=== PATIENT | male | born 1955 | race Asian ===

== ENCOUNTER 2016-07-31 09:26 | Day surgery (SDC) | payer BC, OTHER ==
[~2016-07-31 09:26] MED LIST: Lactated Ringers 1,000 ML IV SCH; Midazolam 1 MG/ML 2 ML SDV ONE; Propofol 200 MG/20 ML SDV ONE; fentaNYL 100 MCG/2 ML SDV ONE
--- NOTE | 2016-07-31 09:49 | PCM.PREANE ---
Preanesthetic Assessment - Anesthesia/Transfusion/Family Hx Anesthesia History: Prior Anesthesia Without Reaction Family History of Anesthesia Reaction: No Transfusion History: No Prior Transfusion(s) Intubation History: Unknown - Review of Systems General: No Symptoms Pulmonary: No Symptoms Cardiovascular: No Symptoms Gastrointestinal: Abdominal pain, Vomiting Neurological: No Symptoms Other: Reports: None - Physical Assessment O2 Sat by Pulse Oximetry: 97 Respiratory Rate: 14 Vital Signs: Last Vital Signs Temp 36 C 07/31/16 09:35 Pulse 82 07/31/16 09:35 Resp 14 07/31/16 09:35 BP 142/90 H 07/31/16 09:35 Pulse Ox 97 07/31/16 09:35 Height: 1.68 m Weight: 63.503 kg ASA Class: 2 Mental Status: Alert & Oriented x3 Airway Class: Mallampati = 2 Dentition: Reports: Riner(s) (few, up front) Thyro-Mental Finger Breadths: 2 Mouth Opening Finger Breadths: 3 ROM/Head Extension: Full Lungs: Clear to auscultation, Normal respiratory effort Cardiovascular: Regular Rate, Regular Rhythm - Allergies Allergies/Adverse Reactions: Allergies Allergy/AdvReac Type Severity Reaction Status Date / Time No Known Allergies Allergy Verified 09/25/14 19:59 - Blood Blood Available: No - Anesthesia Plan Pre-Op Medication Ordered: None - Acknowledgements Anesthesia Type Planned: MAC Pt an Appropriate Candidate for the Planned Anesthesia: Yes Alternatives and Risks of Anesthesia Discussed w Pt/Guardian: Yes Pt/Guardian Understands and Agrees with Anesthesia Plan: Yes PreAnesthesia Questionnaire - Past Health History Medical/Surgical History: Denies Medical/Surgical History Gastrointestinal History: Reports: Other (See Below) Other Gastrointestinal History: gastric ulcers "yrs ago", epigastric pain and vomiting - Past Surgical History Head Surgeries/Procedures: Reports: None HEENT Surgical History: Reports: Other (See Below) Other HEENT Surgeries/Procedures: eye surgery x2 - SUBSTANCE USE Smoking Status *Q: Never Smoker Recreational Drug Use History: No - HOME MEDS Home Medications: Home Meds Esomeprazole Magnesium [Nexium] 20 mg PO DAILY 07/26/16 [History] Multivitamin [Multivitamins] 1 tab PO DAILY 07/26/16 [History] - CURRENT (IN HOUSE) MEDS Current Meds: Current Medications Lactated Ringer's (Ringers, Lactated) 1,000 mls @ 125 mls/hr IV ASDIRECTED LUIS Last Admin: 07/31/16 09:38 Dose: 125 mls/hr Discontinued Medications Fentanyl (Sublimaze) Confirm Administered Dose 100 mcg .ROUTE .STK-MED ONE Stop: 07/31/16 07:28 Midazolam HCl (Versed 1 Mg/Ml) Confirm Administered Dose 2 mg .ROUTE .STK-MED ONE Stop: 07/31/16 07:28 Propofol (Diprivan 20 Ml) Confirm Administered Dose 400 mg .ROUTE .STK-MED ONE Stop: 07/31/16 07:28
[2016-07-31] MEDS ORDERED: Propofol 200 MG/20 ML SDV ONE ×2 (11:58→12:07)
[2016-07-31] MEDS ORDERED: fentaNYL 100 MCG/2 ML SDV ONE (12:11)
--- NOTE | 2016-07-31 12:35 | PCM.OPNOTE ---
- General Post-Op/Procedure Note Date of Surgery/Procedure: 07/31/16 Operative Procedure(s): egd w bx and colonoscopy Findings: see dict [id number] Pre Op Diagnosis: abd pain and scrn colonoscopy Post-Op Diagnosis: same Anesthesia Technique: Moderate sedation Primary Surgeon: Harshil Angeles Pathology: egd bx Complications: None Condition: Good
--- NOTE | 2016-07-31 13:14 | PCM.POSTAN ---
POST ANESTHESIA ASSESSMENT - MENTAL STATUS Mental Status: alert, oriented - RESPIRATORY Respiratory Status: respiratory rate WNL, airway patent, O2 saturation stable - CARDIOVASCULAR CV Status: pulse rate WNL, blood pressure stable - GASTROINTESTINAL GI Status: no symptoms - POST OP HYDRATION Hydration Status: adequate & stable - OBSERVATIONS Free Text/Narrative:: no anesthesia problems
[2016-07-31] MEDS ORDERED: Ondansetron 4 MG Tab.DIS PO ONE (13:37)
[2016-07-31 14:20] VITALS: BP 142/86
--- NOTE | 2016-08-01 06:03 | OR ---
SURGEON: Harshil Angeles MD DATE OF PROCEDURE: 07/31/2016 PREOPERATIVE DIAGNOSES: Screening colonoscopy and peptic ulcer disease. PROCEDURE PERFORMED: Esophagogastroduodenoscopy with biopsy and colonoscopy. COMPLICATION: None. DETAILS OF PROCEDURE: EGD: The patient was taken to the endoscopy room, and with the DELPHI PROGRAMMER, Diprivan was administered. A well-lubricated EGD scope was gently inserted through the oropharynx, down the esophagus, passing through the gastroesophageal junction, into the stomach. The mucosa was examined upon the passage. Any etiology will be noted. Once in the stomach, we continued to advance to the distal antrum, passed through the pylorus into the second portion of the duodenum. Again, the mucosa was examined for any abnormality and etiology. The scope was then retrieved back to the stomach and then retroflexed to look at the fundus of the stomach. If a biopsy was indicated, we will biopsy the antrum, body, and gastroesophageal junction. The air will be sucked out while the scope is retrieved to reduce the patient's discomfort. The patient tolerated the procedure well. There were no intraoperative complications. Dr. Angeles was present through the whole procedure. Prior to surgery, a time-out had been called, the patient identified, procedure identified and antibiotic administered. COLONOSCOPY: The patient was taken to the endoscopy room. A time out was called, patient identified, and procedure identified. Diprivan was then administrated. Patient went from awake to sleep, hearing doctor talking or door closing is normal. Perineum inspection and digital examination were then performed. A well-lubricated colonoscope was gently inserted through the rectum, advanced past the rectosigmoid junction, the descending colon, splenic flexure, transverse colon, hepatic flexure, ascending colon, arrived to the cecum. Cecum was identified as dictated in the finding. Then the scope was carefully withdrawn while attention was paid to the mucosal surface for any abnormality. Air will be sucked out during the scope withdrawal. At the rectum, retroflexed to examine any rectal diseases, fistula or hemorrhoids. Patient tolerated procedure well. There were no intraoperative complications, and Dr. Angeles was present throughout the whole procedure. FINDINGS: Esophagogastroduodenoscopy finding. 1. The patient is easily sedated with DELPHI PROGRAMMER and Diprivan. The patient is soundly snoring. 2. The patient's oropharynx and proximal esophagus are free of disease. In the mid esophagus, the patient has a large amount of white dot, possible esophagitis with yeasts infection. Biopsy done and distal esophagus at 40 with mild salmon color change consistent with acid reflux, and stomach rugae is normal in appearance. No bile, no blood, no ulcer, or no food particle. Antrum was a little bit inflamed and duodenum was grossly normal in appearance. The scope was retrieved back to the stomach. Retroflexed look at the fundus and stomach and there is no hiatal hernia. Biopsy done at antrum, body, GE junction at 40, and also one white dot at the mid esophagus. So 4 biopsy specimens. Sucked out air while scope pulling out. Colonoscopy finding: The patient is easily sedated with DELPHI PROGRAMMER and Diprivan. The patient is soundly snoring and colon is rather redundant at the sigmoid area and requiring several maneuvers. Turning the patient on to side way and flat and pushing on the abdomen was able to get to the cecum. Cecum indicated by ileocecal fold, one-to- one indentation, and light emittance and appendix orifice and the terminal ilium is bulging, pretty large or is possibly a mass. We would like to do a biopsy to confirm the terminal ilium or mass, but however due to peristalsis, the scope was pushed out and despite more than 10 minutes attempt, the scope was not able to get back to the cecum because of the air. At that time, it was inflate, but we will follow up with either terminal ilium or mass in three month on repeat colonoscopy. Otherwise, the patient does not have any diverticulosis other polyp growth or inflammation, stricture, ulceration, bleeding or AV malformation. The patient has mild external hemorrhoid and the patient will need to repeat colonoscopy in three months to establish or to reassess the terminal ilium, or possible mass because of the technical problem of revisit the cecum with a large amount of air. As always, thank you for the kind referral. ELVIN / TOSHIA /[id number]
== END 2016-07-31 13:52 | disposition home or self-care (01) ==
LOC: MW.SDS 09:26
PROVIDERS: ATTEND Surgery
DX: Z12.11 Encounter for screening for malignant neoplasm of colon (principal); Z87.11 Personal history of peptic ulcer disease; K29.50 Unspecified chronic gastritis without bleeding; B96.81 Helicobacter pylori [H. pylori] as the cause of diseases classified elsewhere; K64.4 Residual hemorrhoidal skin tags
CPT/HCPCS: 43239; 45378; A9270; J2250; J3010; J7120; 00740; 88305; 88312; 88313; J2704

== ENCOUNTER 2018-08-08 06:49 | Day surgery (SDC) | payer BC ==
[2018-08-08] MEDS ORDERED: ceFAZolin 2 GM in Premix Bag 1 BAG IV ONE (07:31)
[2018-08-08] MEDS ORDERED: Lactated Ringers 1,000 ML IV SCH (07:45)
[2018-08-08] MEDS ORDERED: Propofol 200 MG/20 ML SDV ONE (08:02)
[2018-08-08] MEDS ORDERED: Lidocaine 2% 100 MG/5 ML Syringe ONE (08:03)
[2018-08-08] MEDS ORDERED: Rocuronium 100 MG/10 ML Syringe ONE (08:03)
[2018-08-08] MEDS ORDERED: fentaNYL 250 MCG/5 ML SDV ONE (08:03)
--- NOTE | 2018-08-08 08:03 | PCM.PREANE ---
Preanesthetic Assessment - Anesthesia/Transfusion/Family Hx Anesthesia History: Prior Anesthesia Without Reaction Family History of Anesthesia Reaction: No Transfusion History: No Prior Transfusion(s) Intubation History: Unknown - Review of Systems General: No Symptoms Pulmonary: No Symptoms Cardiovascular: No Symptoms Gastrointestinal: No Symptoms Neurological: No Symptoms Other: Reports: None - Physical Assessment Height: 5 ft 6 in Weight: 65.771 kg ASA Class: 1 Mental Status: Alert & Oriented x3 Airway Class: Mallampati = 2 Dentition: Reports: Normal Dentition Thyro-Mental Finger Breadths: 3 Mouth Opening Finger Breadths: 3 ROM/Head Extension: Full Lungs: Clear to Auscultation, Normal Respiratory Effort Cardiovascular: Regular Rate, Regular Rhythm - Allergies Allergies/Adverse Reactions: Allergies Allergy/AdvReac Type Severity Reaction Status Date / Time No Known Allergies Allergy Verified 08/06/18 10:43 - Blood Blood Available: No - Anesthesia Plan Pre-Op Medication Ordered: None - Acknowledgements Anesthesia Type Planned: General Anesthesia Pt an Appropriate Candidate for the Planned Anesthesia: Yes Alternatives and Risks of Anesthesia Discussed w Pt/Guardian: Yes Pt/Guardian Understands and Agrees with Anesthesia Plan: Yes PreAnesthesia Questionnaire - Past Health History Medical/Surgical History: Denies Medical/Surgical History HEENT History: Reports: Other (See Below) Other HEENT History: wears glasses Gastrointestinal History: Reports: Colon Polyp, GERD, Hiatal Hernia Other Gastrointestinal History: gastric ulcers "yrs ago", epigastric pain and vomiting Musculoskeletal History: Reports: Arthritis (rt. knee) - Past Surgical History GI Surgical History: Reports: Colonoscopy, EGD - SUBSTANCE USE Smoking Status *Q: Never Smoker Recreational Drug Use History: No - HOME MEDS Home Medications: Home Meds Multivitamin [Multivitamins] 1 tab PO DAILY 07/26/16 [History] Diclofenac Sodium [Voltaren] 50 mg PO BIDMEALS PRN 08/06/18 [History] - CURRENT (IN HOUSE) MEDS Current Meds: Current Medications Lactated Ringer's (Ringers, Lactated) 1,000 mls @ 125 mls/hr IV ASDIRECTED LUIS Discontinued Medications Cefazolin Sodium/Dextrose 2 gm (/ Premix) 50 mls @ 100 mls/hr IV ONETIME ONE Stop: 08/08/18 08:00
[2018-08-08] MEDS ORDERED: Midazolam 1 MG/ML 2 ML SDV ONE (08:17)
[2018-08-08] MEDS ORDERED: ceFAZolin/Dextrose,Iso-Osmotic 2 GM/50 ML Duplex Bag IV ONE (08:20)
[2018-08-08] MEDS ORDERED: Phenylephrine/Normal Saline 100 MCG/ML 10 ML Syringe ONE (08:47)
[2018-08-08] MEDS ORDERED: Dexamethasone 4 MG/ML 5 ML MDV ONE (09:01)
[2018-08-08] MEDS ORDERED: Ketorolac 30 MG/ML SDV ONE (09:01)
[2018-08-08] MEDS ORDERED: Glycopyrrolate 0.2 MG/ML SDV ONE (09:01)
[2018-08-08] MEDS ORDERED: Neostigmine Methylsulfate 1 MG/ML 5 ML Syringe ONE (09:01)
[2018-08-08] MEDS ORDERED: Ondansetron 4 MG/2 ML SDV ONE (09:01)
[2018-08-08] MEDS ORDERED: Lidocaine 2% 5 ML SDV ONE (09:27)
[2018-08-08] MEDS ORDERED: Octyl 2-Cyanoacrylate 1 Tube ONE (09:43)
[2018-08-08] MEDS ORDERED: fentaNYL 100 MCG/2 ML SDV IVPUSH PRN (10:02)
--- NOTE | 2018-08-08 11:07 | PCM.OPNOTE ---
- General Post-Op/Procedure Note Date of Surgery/Procedure: 08/08/18 Operative Procedure(s): ing hernia repair w mesh, L Findings: see dict [id number] Pre Op Diagnosis: ing hernia on L Post-Op Diagnosis: Same Anesthesia Technique: General ET Tube Primary Surgeon: Harshil Angeles Complications: None Condition: Good Free Text/Narrative:: Intake & Output 08/07/18 08/08/18 08/08/18 22:59 06:59 14:59 Intake Total 1100 Output Total 200 Balance 900
[2018-08-08] MEDS: Acetaminophen/oxyCODONE 325-5 MG Tab PO PRN ×2 (12:48→12:54)
--- NOTE | 2018-08-08 13:35 | PCM48HPAN ---
Post Anesthesia Note - EVALUATION WITHIN 48HRS OF ANESTHETIC Vital Signs in Normal Range: Yes Patient Participated in Evaluation: Yes Respiratory Function Stable: Yes Airway Patent: Yes Cardiovascular Function Stable: Yes Hydration Status Stable: Yes Pain Control Satisfactory: Yes Nausea and Vomiting Control Satisfactory: Yes Mental Status Recovered: Yes Resp Rate: 16 - COMMENTS/OBSERVATIONS Free Text/Narrative:: The patient had dry heaves while he was changing his clothes. This was witnessed by me. The patient immediately sat down, and the heaves resolved over 10 minutes. Prior to discharge, I expressed my concerns regarding N/V with the patient, and the patient stated that the nauseous feeling has resolved , and would like to go home. The patient was discharged to home per criteria.
[2018-08-08 14:26] VITALS: BP 141/77
--- NOTE | 2018-08-08 15:58 | OR ---
SURGEON: Harshil Angeles MD DATE OF PROCEDURE: 08/08/2018 PREOPERATIVE DIAGNOSIS: Left inguinal hernia. POSTOPERATIVE DIAGNOSIS: Left inguinal hernia. PROCEDURE PERFORMED: Inguinal hernia repair with mesh on the left. PRIMARY SURGEON: Harshil Angeles MD. COMPLICATIONS: None. FINDINGS: It looks like the patient has 2 hernias on the left and one is a direct hernia, one is indirect hernia, and repaired with a custom-made medium-size mesh.. PROCEDURE IN DETAIL: The patient was taken to the operating room and placed in the supine position. Upon induction of general endotracheal anesthesia, the patient's groin and inguinal area were prepped and draped in a sterile fashion. The scrotum was placed on top of the drape in case it needed to be maneuvered. An IV antibiotic was given prophylactically and after assessment of appropriate landmark, a transverse skin incision was made two fingers above the inguinal crease. This was then carefully taken down past the Christo fascia and exposed the external oblique where the cord is. A small cesar was made right on top of the cord and then using a Metzenbaum scissors, carefully opened up the fiber along its direction all the way to the external ring. The spermatic cord was then carefully lifted up from the inguinal canal. A Wingate drain was then used to hold on to manipulate the cord and carefully dissect out from the inguinal floor. The cremasteric muscle was then opened up. Careful examined of the cord, dissected down the cremasteric muscle, a large glistening whitish hernia sac in the medial anterior aspect of the floor, next to the cord, was located. The vas was identified and pushed aside to avoid damage. This was carefully dissected down all the way to the internal ring. The hernia sac was open up to examine if there was any hernia content; using a 2-0 silk, a purse string was placed to close the sac and the redundant part of the sac was amputated. A small plug was inserted into the hernia stump and followed with a mesh to reinforce the inguinal floor. The mesh was then anchored down by using 2-0 Prolene stitches to the periosteum of the pubic symphysis, then running down to the lateral aspect of the rectus muscle. The lateral part of the mesh was then anchored to the Ayush ligament, again using 2-0 Prolene. The last few stitches also anchored the plug to make sure the plug is not migrating. Where the cord exits out, a stitch was placed in the two tails to repair the internal ring. Upon conclusion of surgery, I used a finger to make sure the ring is not too tight and not too loose, followed with some irrigation. The external oblique was then repaired by use of 2-0 Vicryl and the recreation external ring was also tested, not too tight, not too loose, followed with 2-0 Vicryl and closed the Christo fascia and the skin stapled to approximate the skin, followed by appropriate dressing. The patient was then awakened, extubated and transferred to recovery room in a hemodynamically stable condition. The patient tolerated the procedure well. There were no intraoperative complications. Dr. Angeles was present through the whole procedure. Just before surgery, a timeout was called. The patient was identified and procedure identified and procedure started. Findings as dictated above. As always, thank you for the kind referral. ELVIN POPE /[id number] [id number]
== END 2018-08-08 13:30 | disposition home or self-care (01) ==
LOC: MW.SDS 06:49
PROVIDERS: ATTEND Surgery
DX: K40.90 Unilateral inguinal hernia, without obstruction or gangrene, not specified as recurrent (principal); M13.861 Other specified arthritis, right knee; Z87.19 Personal history of other diseases of the digestive system
CPT/HCPCS: 49505; A9270; C1781; J0131; J0690; J1100; J1885; J2001; J2250; J2370; J2405; J2704; J3010; J3490; J7120

== ENCOUNTER 2018-08-12 16:01 | Emergency (ER) | payer BC ==
--- NOTE | 2018-08-12 16:50 | EDM.PDOC ---
ED HPI GENERAL MEDICAL PROBLEM - General Chief Complaint: Gastrointestinal Problem Stated Complaint: POST SURGERY PAIN Time Seen by Provider: 08/12/18 16:49 Source of Information: Reports: Patient - History of Present Illness INITIAL COMMENTS - FREE TEXT/NARRATIVE: HISTORY AND PHYSICAL: History of present illness: [Patient presents postop day for stating he has not had a bowel movement since the day after surgery for hernia repair with Dr. Velez, somewhat uncomfortable on arrival however lab flat and upright were obtained there is no bowel obstruction and I did provide some fluids and Reglan for the patient and he had a large bowel movement and did urinate but did not save the sample Hence he is feeling much better all give him some oral Reglan to take at home and have him follow-up with Dr. Velez as scheduled and can certainly return if symptoms persist or worsen No fever nausea vomiting chills sweats ] Review of systems: As per history of present illness and below otherwise all systems reviewed and negative. Past medical history: As per history of present illness and as reviewed below otherwise noncontributory. Surgical history: As per history of present illness and as reviewed below otherwise noncontributory. Social history: No reported history of drug or alcohol abuse. Family history: As per history of present illness and as reviewed below otherwise noncontributory. Physical exam: HEENT: Atraumatic, normocephalic, pupils reactive, negative for conjunctival pallor or scleral icterus, mucous membranes moist, throat clear, neck supple, nontender, trachea midline. Lungs: Clear to auscultation, breath sounds equal bilaterally, chest nontender. Heart: S1S2, regular, negative for clicks, rubs, or JVD. Abdomen: Soft, nondistended, nontender. Negative for masses or hepatosplenomegaly. Negative for costovertebral tenderness. Pelvis: Stable nontender. Genitourinary: Deferred. Rectal: Deferred. Extremities: Atraumatic, negative for cords or calf pain. Neurovascular unremarkable. Neuro: Awake, alert, oriented. Cranial nerves II through XII unremarkable. Cerebellum unremarkable. Motor and sensory unremarkable throughout. Exam nonfocal. Diagnostics: [CBC CMP UA Chest 1 view Abdomen flat and upright ] Therapeutics: NormalSaline Reglan Reglan Bowel care discussed Return if symptoms persist or worsen ] Impression Postoperative constipation resolved Urine retention resolved definitive disposition and diagnosis as appropriate pending reevaluation and review of above. L groin/low abdomen Pain Score (Numeric/FACES): 5 - Related Data Allergies Allergy/AdvReac Type Severity Reaction Status Date / Time No Known Allergies Allergy Verified 08/12/18 16:29 Home Meds: Home Meds Diclofenac Sodium [Voltaren] 50 mg PO BIDMEALS PRN 08/06/18 [History] Past Medical History - Past Health History Medical/Surgical History: Denies Medical/Surgical History HEENT History: Reports: Other (See Below) Other HEENT History: wears glasses Gastrointestinal History: Reports: Colon Polyp, GERD, Hiatal Hernia Other Gastrointestinal History: gastric ulcers "yrs ago", epigastric pain and vomiting Musculoskeletal History: Reports: Arthritis - Past Surgical History Head Surgeries/Procedures: Reports: None HEENT Surgical History: Reports: Other (See Below) Other HEENT Surgeries/Procedures: eye surgery x2 GI Surgical History: Reports: Colonoscopy, EGD Social & Family History - Tobacco Use Smoking Status *Q: Never Smoker Second Hand Smoke Exposure: No - Caffeine Use Caffeine Use: Reports: Coffee, Tea - Recreational Drug Use Recreational Drug Use: No ED ROS GENERAL - Review of Systems Review Of Systems: See Below ED EXAM, GENERAL - Physical Exam Exam: See Below Course - Vital Signs Last Recorded V/S: Last Vital Signs Temp 96.3 F 08/12/18 16:26 Pulse 98 08/12/18 16:26 Resp 16 08/12/18 16:26 BP 163/88 H 08/12/18 16:26 Pulse Ox 96 08/12/18 16:26 - Orders/Labs/Meds Orders: Active Orders 24 hr Category Date Time Status Abdomen Series w Chest 1V [CR] Stat Exams 08/12/18 16:48 Taken UA RFX BRITTANEY AND CULT IF INDIC [URIN] Stat Lab 08/12/18 16:48 Ordered Sodium Chloride 0.9% [Normal Saline] 1,000 ml Med 08/12/18 17:00 Active IV STAT Medication Orders Sodium Chloride (Normal Saline) 1,000 mls @ 125 mls/hr IV STAT LUIS Last Admin: 08/12/18 17:04 Dose: 125 mls/hr Labs: Laboratory Tests 08/12/18 08/12/18 Range/Units 17:01 17:01 WBC 13.23 H (4.0-11.0) K/uL RBC 5.24 (4.50-5.90) M/uL Hgb 16.1 (13.0-17.0) g/dL Hct 47.4 (38.0-50.0) % MCV 90.5 (80.0-98.0) fL MCH 30.7 (27.0-32.0) pg MCHC 34.0 (31.0-37.0) g/dL RDW Std Deviation 42.4 (28.0-62.0) fl RDW Coeff of Claudio 13 (11.0-15.0) % Plt Count 324 (150-400) K/uL MPV 10.10 (7.40-12.00) fL Neut % (Auto) 80.4 H (48.0-80.0) % Lymph % (Auto) 10.1 L (16.0-40.0) % [place] % (Auto) 8.8 (0.0-15.0) % Eos % (Auto) 0.5 (0.0-7.0) % Baso % (Auto) 0.2 (0.0-1.5) % Neut # (Auto) 10.6 H (1.4-5.7) K/uL Lymph # (Auto) 1.3 (0.6-2.4) K/uL [place] # (Auto) 1.2 H (0.0-0.8) K/uL Eos # (Auto) 0.1 (0.0-0.7) K/uL Baso # (Auto) 0.0 (0.0-0.1) K/uL Nucleated RBC % 0.0 /100WBC Nucleated RBCs # 0 K/uL Sodium 133 L (136-148) mmol/L Potassium 4.1 (3.5-5.1) mmol/L Chloride 96 L (98-107) mmol/L Carbon Dioxide 26.3 (21.0-32.0) mmol/L BUN 20 H (7.0-18.0) mg/dL Creatinine 0.7 L (0.8-1.3) mg/dL Est Cr Clr Drug Dosing 98.74 mL/min Estimated GFR (MDRD) > 60.0 ml/min Glucose 177 H (74-106) mg/dL Calcium 10.2 H (8.5-10.1) mg/dL Total Bilirubin 0.5 (0.2-1.0) mg/dL AST 25 (15-37) IU/L ALT 45 (14-63) IU/L Alkaline Phosphatase 66 (46-116) U/L Troponin I < 0.050 (0.000-0.056) ng/mL Total Protein 8.6 H (6.4-8.2) g/dL Albumin 3.9 (3.4-5.0) g/dL Globulin 4.7 H (2.6-4.0) g/dL Albumin/Globulin Ratio 0.8 L (0.9-1.6) Meds: Medications Generic Name Dose Route Start Last Admin Trade Name Freq PRN Reason Stop Dose Admin Sodium Chloride 1,000 mls @ 125 mls/hr 08/12/18 17:00 08/12/18 17:04 Normal Saline IV 125 mls/hr STAT LUIS Administration Discontinued Medications Generic Name Dose Route Start Last Admin Trade Name Freq PRN Reason Stop Dose Admin Metoclopramide HCl 10 mg 08/12/18 17:35 08/12/18 17:49 Reglan IV 08/12/18 17:36 10 mg ONETIME ONE Administration Departure - Departure Time of Disposition: 18:19 Disposition: Home, Self-Care 01 Condition: Good Clinical Impression: Encounter for medical screening examination - Discharge Information Referrals: PCP,None [Primary Care Provider] - Forms: ED Department Discharge Additional Instructions: Medication as prescribed Return if symptoms persist or worsen Follow-up with general surgery as scheduled The following information is given to patients seen in the emergency department who are being discharged to home. This information is to outline your options for follow-up care. We provide all patients seen in our emergency department with a follow-up referral. The need for follow-up, as well as the timing and circumstances, are variable depending upon the specifics of your emergency department visit. If you don't have a primary care physician on staff, we will provide you with a referral. We always advise you to contact your personal physician following an emergency department visit to inform them of the circumstance of the visit and for follow-up with them and/or the need for any referrals to a consulting specialist. The emergency department will also refer you to a specialist when appropriate. This referral assures that you have the opportunity for follow-up care with a specialist. All of these measure are taken in an effort to provide you with optimal care, which includes your follow-up. Under all circumstances we always encourage you to contact your private physician who remains a resource for coordinating your care. When calling for follow-up care, please make the office aware that this follow-up is from your recent emergency room visit. If for any reason you are refused follow-up, please contact the [facility] emergency department at and asked to speak to the emergency department charge nurse. - My Orders Last 24 Hours: My Active Orders 08/12/18 16:48 Abdomen Series w Chest 1V [CR] Stat UA RFX BRITTANEY AND CULT IF INDIC [URIN] Stat 08/12/18 17:00 Sodium Chloride 0.9% [Normal Saline] 1,000 ml IV STAT - Assessment/Plan Last 24 Hours: My Active Orders 08/12/18 16:48 Abdomen Series w Chest 1V [CR] Stat UA RFX BRITTANEY AND CULT IF INDIC [URIN] Stat 08/12/18 17:00 Sodium Chloride 0.9% [Normal Saline] 1,000 ml IV STAT
[2018-08-12] MEDS ORDERED: Sodium Chloride 0.9% 1,000 ML IV SCH (17:00)
[2018-08-12] MEDS ORDERED: Metoclopramide 10 MG/2 ML SDV IV ONE (17:35)
[2018-08-12 17:40] LABS: CHLORIDE,CL 96 mmol/L (98-107); SODIUM,NA 133 mmol/L (136-148)
--- NOTE | 2018-08-12 18:24 | CR ---
Indication: Postsurgical pain Technique: Chest and abdomen 3 view. Comparison: None. Findings: Chest: Heart size and pulmonary vasculature are normal. Lungs and pleural spaces are clear. Bowel: Bowel pattern is normal. Soft tissues: No sign of free air. No sign of soft tissue mass. No suspicious calcifications. Bones: Unremarkable for age. Impression: Unremarkable chest and abdomen. Dictated by Ryan Douglas MD @ Aug 12 2018 6:21PM Signed by Dr. Ryan Douglas @ Aug 12 2018 6:22PM
[2018-08-12 18:30] VITALS: BP 127/76
== END 2018-08-12 18:30 | disposition home or self-care (01) ==
LOC: MW.ED 16:01
DX: Z13.9 Encounter for screening, unspecified (principal)
CPT/HCPCS: 74022; 80053; 84484; 85025; 96361; 96374; 99283; J2765; J7040

== ENCOUNTER 2021-07-07 15:43 | Observation (INO) | payer MEDICARE, OTHER, BC ==
[2021-07-07] MEDS ORDERED: Sodium Chloride 0.9% 10 ML Syringe FLUSH PRN (15:52)
[2021-07-07] MEDS ORDERED: Sodium Chloride 0.9% 1,000 ML IV ONE (15:52)
[2021-07-07] MEDS ORDERED: Sodium Chloride 0.9% 2.5 ML Syringe FLUSH PRN (15:52)
[2021-07-07 16:28] LABS: BLOOD UREA NITROGEN,BUN 31 mg/dL (7.0-18.0); CARBON DIOXIDE,CO2 21.3 mmol/L (21.0-32.0); CHLORIDE,CL 103 mmol/L (98-107); GLUCOSE RANDOM 242 mg/dL (74-106); POTASSIUM,K 3.5 mmol/L (3.5-5.1); SODIUM,NA 137 mmol/L (136-148)
[2021-07-07] MEDS ORDERED: Aspirin 81 MG Tab.Chew PO ONE (16:40)
[2021-07-07] MEDS ORDERED: Nitroglycerin 2% Oint 1 GM UD Packet TOP ONE (16:41)
[2021-07-07] MEDS ORDERED: 50% Dextrose in Water 50 ML Syringe IVPUSH PRN (22:50)
[2021-07-07] MEDS ORDERED: Glucagon,Human Recombinant 1 MG Vial IM PRN (22:50)
[2021-07-07] MEDS ORDERED: Lisinopril 10 MG Tab PO SCH (23:00)
[2021-07-08 04:16] LABS: BLOOD UREA NITROGEN,BUN 25 mg/dL (7.0-18.0); CARBON DIOXIDE,CO2 26.5 mmol/L (21.0-32.0); CHLORIDE,CL 107 mmol/L (98-107); GLUCOSE RANDOM 189 mg/dL (74-106); SODIUM,NA 142 mmol/L (136-148)
[2021-07-08] MEDS: Insulin Aspart 100 Units/ML 3 ML Pen SUBCUT SCH ×2 (07:30→12:06)
[2021-07-08 13:28] VITALS: BP 143/77; PULSE 80
== END 2021-07-08 12:45 | disposition home or self-care (01) ==
LOC: MW.ED 15:43 → MW.MS 17:12
PROVIDERS: ADMIT Internal Medicine; ATTEND Internal Medicine
DX: R07.89 Other chest pain (principal); E11.9 Type 2 diabetes mellitus without complications; I10 Essential (primary) hypertension; Z79.84 Long term (current) use of oral hypoglycemic drugs; Z79.899 Other long term (current) drug therapy; Z20.822 Contact with and (suspected) exposure to COVID-19
CPT/HCPCS: 36415; 71045; 80048; 80053; 82947; 84484; 85025; 85027; 93005; 99285; A9270; J1815; J3490; J7030; U0002; 93010; G0378

== ENCOUNTER 2022-06-13 08:19 | Observation (INO) | payer MEDICARE, OTHER ==
[~2022-06-13 08:19] MED LIST changes: +Albuterol 0.083% 2.5 MG/3 ML Neb Soln NEB PRN; +Famotidine 20 MG/2 ML SDV IVPUSH SCH; +HYDROmorphone 1 MG/ML Syringe IVPUSH PRN; +Metoclopramide 10 MG/2 ML SDV IVPUSH PRN; -Midazolam 1 MG/ML 2 ML SDV ONE; +Morphine 2 MG/ML SYRINGE IVPUSH PRN; +Naloxone 0.4 MG/ML SDV IVPUSH PRN; +Ondansetron 4 MG/2 ML SDV IVPUSH PRN; -Propofol 200 MG/20 ML SDV ONE; +Ropivacaine 49.25 ML, Ketorolac 30 MG, EPINEPHrine 0.5 MG, cloNIDine 80 MCG in Sodium C... INJECT SCH; +Scopolamine 1.5 MG Transdermal Patch TRDERM SCH; +Tranexamic Acid 1,000 MG in Sodium Chloride 0.9% 100 ML IV ONE; +ceFAZolin 2 GM in Premix Bag 1 BAG IV SCH; +ePHEDrine 50 MG/ML SDV IVPUSH PRN; -fentaNYL 100 MCG/2 ML SDV ONE; +fentaNYL 50 MCG/ML SDV IVPUSH PRN
[2022-06-13] MEDS ORDERED: Famotidine 20 MG/2 ML SDV ONE (08:41)
[2022-06-13] MEDS ORDERED: Lidocaine 2% 5 ML SDV ONE ×2 (09:31→10:57)
[2022-06-13] MEDS ORDERED: Bupivacaine 0.5% 30 ML SDV ONE (09:31)
[2022-06-13] MEDS ORDERED: Water For Injection, Sterile 20 ML ONE (09:34)
[2022-06-13] MEDS ORDERED: Dexmedetomidine 200 MCG/2 ML SDV ONE (09:34)
[2022-06-13] MEDS ORDERED: fentaNYL 100 MCG/2 ML SDV ONE (10:21)
[2022-06-13] MEDS ORDERED: Ondansetron 4 MG/2 ML SDV ONE (10:21)
[2022-06-13] MEDS ORDERED: Propofol 200 MG/20 ML SDV ONE ×2 (10:23)
[2022-06-13] MEDS ORDERED: Phenylephrine 1% 10 MG/ML SDV ONE (10:57)
[2022-06-13] MEDS ORDERED: Sodium Chloride 0.9% 2.5 ML Syringe FLUSH PRN (12:43)
[2022-06-13] MEDS ORDERED: Bisacodyl 10 MG Supp RECTAL PRN (12:43)
[2022-06-13] MEDS ORDERED: Morphine 2 MG/ML SYRINGE IVPUSH PRN (12:43)
[2022-06-13] MEDS ORDERED: traMADol 50 MG Tab PO PRN (12:43)
[2022-06-13] MEDS ORDERED: Aluminum Hydroxide/Magnesium Hydroxide/Simethicone XS Susp 30 ML Cup PO PRN (12:43)
[2022-06-13] MEDS ORDERED: Ondansetron 4 MG/2 ML SDV IVPUSH PRN (12:43)
[2022-06-13] MEDS ORDERED: oxyCODONE 5 MG Tab PO PRN (12:43)
[2022-06-13] MEDS ORDERED: diphenhydrAMINE 25 MG Cap PO PRN (12:43)
[2022-06-13] MEDS ORDERED: Sodium Chloride 0.9% 10 ML Syringe FLUSH PRN (12:43)
[2022-06-13] MEDS: Ketorolac 30 MG/ML SDV IVPUSH SCH ×3 (13:58→23:51)
[2022-06-13] MEDS: Acetaminophen 325 MG Tab PO SCH ×3 (14:02→21:25)
[2022-06-13] MEDS: ceFAZolin 2 GM in Sodium Chloride 0.9% 50 ML IV SCH (18:29)
[2022-06-13] MEDS: Aspirin 325 MG Tab PO SCH (18:30)
[2022-06-13] MEDS: Docusate Sodium 100 MG Cap PO SCH (21:25)
[2022-06-14] MEDS: Acetaminophen 325 MG Tab PO SCH ×3 (01:08→09:49)
[2022-06-14] MEDS: ceFAZolin 2 GM in Sodium Chloride 0.9% 50 ML IV SCH (02:59)
[2022-06-14] MEDS ORDERED: Polyethylene Glycol 3350 Powder 17 GM Packet PO SCH (09:00)
[2022-06-14] MEDS: Aspirin 325 MG Tab PO SCH (09:48)
[2022-06-14] MEDS: Docusate Sodium 100 MG Cap PO SCH (09:48)
[2022-06-14] MEDS ORDERED: Ibuprofen 600 MG Tab PO PRN (11:00)
[2022-06-14 13:16] VITALS: BP 101/56; PULSE 65
== END 2022-06-14 12:00 | disposition home or self-care (01) ==
LOC: MW.SDS 08:19 → MW.MS 13:25
PROVIDERS: ADMIT Orthopaedic Surgery; ATTEND Orthopaedic Surgery
DX: M17.11 Unilateral primary osteoarthritis, right knee (principal); E11.9 Type 2 diabetes mellitus without complications; I10 Essential (primary) hypertension; E78.5 Hyperlipidemia, unspecified; K21.9 Gastro-esophageal reflux disease without esophagitis; Z79.899 Other long term (current) drug therapy; Z98.890 Other specified postprocedural states
CPT/HCPCS: 36415; 73560-26-RT; 73560-RT; 82947; 85014; 85018; 86850; 86900; 86901; 97110-GP; 97161-GP; 97530-GP; A9270-GY; C1713; C1776; J0171; J0690; J0735; J1885; J2370; J2405; J2704; J2795; J3010; J3490; J7120

== ENCOUNTER 2022-10-10 06:17 | Observation (INO) | payer MEDICARE, OTHER ==
[~2022-10-10 06:17] MED LIST changes: -Ropivacaine 49.25 ML, Ketorolac 30 MG, EPINEPHrine 0.5 MG, cloNIDine 80 MCG in Sodium C... INJECT SCH; -Scopolamine 1.5 MG Transdermal Patch TRDERM SCH; -Tranexamic Acid 1,000 MG in Sodium Chloride 0.9% 100 ML IV ONE; -ceFAZolin 2 GM in Premix Bag 1 BAG IV SCH; +droPERidol 5 MG/2 ML SDV IVPUSH PRN; -ePHEDrine 50 MG/ML SDV IVPUSH PRN
[2022-10-10] MEDS ORDERED: Ropivacaine 49.25 ML, Ketorolac 30 MG, EPINEPHrine 0.5 MG, cloNIDine 80 MCG in Sodium C... INJECT SCH (07:00)
[2022-10-10] MEDS ORDERED: Famotidine 20 MG/2 ML SDV ONE (07:12)
[2022-10-10] MEDS ORDERED: propofoL 50 ML ONE (07:21)
[2022-10-10] MEDS ORDERED: Dexmedetomidine 200 MCG/2 ML SDV ONE (07:24)
[2022-10-10] MEDS ORDERED: Water For Injection, Sterile 20 ML ONE (07:25)
[2022-10-10] MEDS ORDERED: Lidocaine 1% 5 ML VIAL ONE (07:28)
[2022-10-10] MEDS ORDERED: Ropivacaine 0.5% 5 MG/ML 30 ML SDV ONE (07:37)
[2022-10-10] MEDS ORDERED: ceFAZolin 2 GM in Sodium Chloride 0.9% 50 ML IV SCH (08:00)
[2022-10-10] MEDS ORDERED: ceFAZolin 1 GM Vial ONE ×2 (08:00)
[2022-10-10] MEDS ORDERED: Tranexamic Acid 1,000 MG in Sodium Chloride 0.9% 100 ML IV SCH (08:00)
[2022-10-10] MEDS ORDERED: Dexamethasone 4 MG/ML 5 ML MDV ONE (08:16)
[2022-10-10] MEDS ORDERED: Phenylephrine HCl 0.5 MG/5 ML AMP ONE ×2 (08:22→08:23)
[2022-10-10] MEDS ORDERED: Metoclopramide 10 MG/2 ML SDV ONE (08:25)
[2022-10-10] MEDS ORDERED: Phenylephrine 1% 10 MG/ML SDV ONE ×2 (08:28→08:29)
[2022-10-10] MEDS ORDERED: Morphine 2 MG/ML SYRINGE IVPUSH PRN (10:02)
[2022-10-10] MEDS ORDERED: Sodium Chloride 0.9% 10 ML Syringe FLUSH PRN (10:02)
[2022-10-10] MEDS ORDERED: oxyCODONE 5 MG Tab PO PRN ×2 (10:02→10:44)
[2022-10-10] MEDS ORDERED: Ondansetron 4 MG/2 ML SDV IVPUSH PRN (10:02)
[2022-10-10] MEDS ORDERED: diphenhydrAMINE 25 MG Cap PO PRN (10:02)
[2022-10-10] MEDS ORDERED: Sodium Chloride 0.9% 2.5 ML Syringe FLUSH PRN (10:02)
[2022-10-10] MEDS ORDERED: traMADol 50 MG Tab PO PRN ×2 (10:02→10:40)
[2022-10-10] MEDS ORDERED: Aluminum Hydroxide/Magnesium Hydroxide/Simethicone XS Susp 30 ML Cup PO PRN (10:02)
[2022-10-10] MEDS: Ketorolac 30 MG/ML SDV IVPUSH SCH ×3 (10:15→21:20)
[2022-10-10] MEDS ORDERED: Glucagon,Human Recombinant 1 MG Vial IM PRN (12:21)
[2022-10-10] MEDS ORDERED: 50% Dextrose in Water 50 ML Syringe IVPUSH PRN (12:21)
[2022-10-10 12:43] LABS: BASOPHILS PERCENT AUTO 0.3 % (0.0-1.5); EOSINOPHILS PERCENT AUTO 0.3 % (0.0-7.0); HEMATOCRIT 38.2 % (38.0-50.0); HEMOGLOBIN 12.6 g/dL (13.0-17.0); LYMPHOCYTES ABSOLUTE AUTO 0.7 K/uL (0.6-2.4); LYMPHOCYTES PERCENT AUTO 9.8 % (16.0-40.0); MEAN CORPUSCULAR HEMOGLOBIN 29.4 pg (27.0-32.0); MONOCYTES ABSOLUTE AUTO 0.1 K/uL (0.0-0.8); MONOCYTES PERCENT AUTO 1.3 % (0.0-15.0); NEUTROPHILS ABSOLUTE AUTO 6.2 K/uL (1.4-5.7); NEUTROPHILS PERCENT AUTO 88.3 % (48.0-80.0); NRBC ABSOLUTE 0 K/uL; PLATELET COUNT,PLT 254 K/uL (150-400); RED BLOOD CELL COUNT 4.29 M/uL (4.50-5.90); WHITE BLOOD CELL COUNT,WBC 6.96 K/uL (4.0-11.0)
[2022-10-10 13:09] LABS: CALCIUM 8.6 mg/dL (8.5-10.1); CARBON DIOXIDE,CO2 24.3 mmol/L (21.0-32.0); CREATININE 0.7 mg/dL (0.8-1.3); EST CRCL DRUG DOSING (CG) 90.66 mL/min; MAGNESIUM 1.8 mg/dL (1.8-2.4); POTASSIUM,K 3.8 mmol/L (3.5-5.1)
[2022-10-10] MEDS: Acetaminophen 325 MG Tab PO SCH ×3 (14:30→21:20)
[2022-10-10] MEDS: ceFAZolin 2 GM in Sodium Chloride 0.9% 100 ML IV SCH (16:15)
[2022-10-10] MEDS: Insulin Aspart 100 Units/ML 3 ML Pen SUBCUT SCH (16:58)
[2022-10-10] MEDS: Aspirin 325 MG Tab PO SCH (21:20)
[2022-10-10] MEDS: Docusate Sodium 100 MG Cap PO SCH (21:20)
[2022-10-11] MEDS: Acetaminophen 325 MG Tab PO SCH ×3 (00:25→08:20)
[2022-10-11] MEDS: ceFAZolin 2 GM in Sodium Chloride 0.9% 100 ML IV SCH (00:25)
[2022-10-11] MEDS: Ketorolac 30 MG/ML SDV IVPUSH SCH (04:21)
[2022-10-11] MEDS: Insulin Aspart 100 Units/ML 3 ML Pen SUBCUT SCH (06:30)
[2022-10-11 07:19] VITALS: PULSE 65
[2022-10-11 07:26] LABS: CALCIUM 8.3 mg/dL (8.5-10.1); CARBON DIOXIDE,CO2 23.4 mmol/L (21.0-32.0); CREATININE 0.7 mg/dL (0.8-1.3); EST CRCL DRUG DOSING (CG) 90.66 mL/min; MAGNESIUM 2.1 mg/dL (1.8-2.4); POTASSIUM,K 3.9 mmol/L (3.5-5.1)
[2022-10-11] MEDS: Aspirin 325 MG Tab PO SCH (08:19)
[2022-10-11] MEDS: Docusate Sodium 100 MG Cap PO SCH (08:19)
[2022-10-11 08:26] VITALS: BP 116/58
[2022-10-11] MEDS ORDERED: Multivitamin Tab PO SCH (09:00)
[2022-10-11] MEDS ORDERED: Famotidine 20 MG Tab PO SCH (09:00)
[2022-10-11] MEDS ORDERED: Lisinopril 10 MG Tab PO SCH (09:00)
[2022-10-11] MEDS ORDERED: Polyethylene Glycol 3350 Powder 17 GM Packet PO SCH (09:00)
[2022-10-11] MEDS ORDERED: Ibuprofen 600 MG Tab PO SCH (09:00)
== END 2022-10-11 10:35 | disposition home or self-care (01) ==
LOC: MW.SDS 06:17 → MW.MS 12:13
PROVIDERS: ADMIT Orthopaedic Surgery; ATTEND Orthopaedic Surgery
DX: M17.0 Bilateral primary osteoarthritis of knee (principal); M24.10 Other articular cartilage disorders, unspecified site; E11.9 Type 2 diabetes mellitus without complications; I10 Essential (primary) hypertension; K63.5 Polyp of colon; K40.90 Unilateral inguinal hernia, without obstruction or gangrene, not specified as recurrent; M51.16 Intervertebral disc disorders with radiculopathy, lumbar region; M48.061 Spinal stenosis, lumbar region without neurogenic claudication; M47.816 Spondylosis without myelopathy or radiculopathy, lumbar region; M79.18 Myalgia, other site; R11.0 Nausea; K25.9 Gastric ulcer, unspecified as acute or chronic, without hemorrhage or perforation; G47.00 Insomnia, unspecified; Z96.651 Presence of right artificial knee joint; Z79.899 Other long term (current) drug therapy; Z79.82 Long term (current) use of aspirin; Z79.84 Long term (current) use of oral hypoglycemic drugs
CPT/HCPCS: 27447; 36415; 64447; 73560; 80048; 82947; 83735; 85014; 85018; 85025; 86850; 86900; 86901; 97110; 97161; A9270; C1776; J0171; J0690; J0735; J1100; J1815; J1885; J2370; J2704; J2765; J2795; J3490; J7120